=== PATIENT | male | born 1985 | race Caucasian/White ===

== ENCOUNTER → 2017-02-02 | Outpatient (CLI) | payer BC | LOC: RAD 16:14 | DX: M54.13 Radiculopathy, cervicothoracic region (principal); M54.6 Pain in thoracic spine; G89.29 Other chronic pain ==

== ENCOUNTER 2017-03-10 12:09 | Emergency (ER) | payer BC, OTHER ==
[~2017-03-10] VITALS: Ht 175.3 cm; Wt 62.1 kg
--- NOTE | ~2017-03-10 | EKG ---
[place] [address] [facility] [place] [address] ELECTROCARDIOGRAM REPORT Name: OTF WILSON Room #: DEP Nicole#: [id number] Admission: 03/10/17 Attend Phys: Discharge: 03/10/17 Date of : 85 Report #: [id number] THIS REPORT FOR: //name// 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
[2017-03-10 13:03] LABS: HEMATOCRIT 44.1 % (42.0-52.0); HEMOGLOBIN 15.3 gm/dL (14.0-18.0); MANUAL DIFF YES; MCH 33.7 pg (26.0-34.0); MCHC 34.7 g/dL (28.0-37.0); MCV 97.1 fL (80.0-100.0); PLATELET COUNT 215 thou/uL (150-400); RBC 4.54 mil/uL (4.50-6.00); WBC 5.8 thou/uL (4.0-11.0)
[2017-03-10 13:07] LABS: ANION GAP 8 mmol/L (7-16); BUN 6 mg/dL (7-18); CALCIUM 9.4 mg/dL (8.5-10.1); CHLORIDE 105 mmol/L (98-107); CO2 28 mmol/L (21-32); GLUCOSE 109 mg/dL (74-106); POTASSIUM 3.9 mmol/L (3.5-5.1); SODIUM 141 mmol/L (136-145)
[2017-03-10 13:15] LABS: TROPONIN-I < 0.04 ng/mL (<0.04-0.07)
[2017-03-10 14:10] LABS: ABSOLUTE NEUTROPHILS 2.3 thou/uL (1.4-8.2); ANISOCYTOSIS SLIGHT; TOTAL CELL COUNT 100
[2017-03-10 14:57] VITALS: BP 104/69
== END 2017-03-10 14:32 | disposition home or self-care (01) ==
LOC: ER 12:09
PROVIDERS: Nurse Practitioner
DX: R20.0 Anesthesia of skin (principal); R20.2 Paresthesia of skin; F17.210 Nicotine dependence, cigarettes, uncomplicated; F10.99 Alcohol use, unspecified with unspecified alcohol-induced disorder; Z98.890 Other specified postprocedural states